=== PATIENT | male | born 1965 | race Caucasian/White ===

== ENCOUNTER 2022-07-31 12:41 | Outpatient (CLI) | payer OTHER, SELFPAY ==
--- NOTE | 2022-07-31 13:14 | XR_ITS ---
WS: [id number] Lumbar spine, 3 views, 07/31/2022 Clinical Data: ARTHRITIS Comparison: None. Findings: No compression fractures or subluxation is seen. No disc space narrowing is seen. There is minimal an terior osteoarthritic spurring L3-L5. There is a minimal levoscoliosis. There are surgical clips in t he left upper quadrant. There is a large amount of fecal material in the colon. The transverse proces ses and SI joints are normal. XR/XR lumbar spine 2-3V* [id number] Impression: Minimal levoscoliosis with osteoarthritis L3-L5.
--- NOTE | 2022-07-31 13:14 | XR_ITS ---
WS: [id number] Thoracic spine, AP and lateral views, 07/31/2022 Clinical Data: ARTHRITIS Comparison: None. Findings: No compression fractures are seen. The disc heights are normal. There is a dextroscoliosis. Moderate osteoarthritic spurring of all the vertebral bodies is seen. The re are surgical sutures in the left upper quadrant. XR/XR thoracic spine 2V 14096 Impression: Dextroscoliosis and moderate osteoarthritis of the thoracic spine.
[2022-07-31 14:00] LABS: Basophils # 0.1 10^3/uL (0.0-0.1); Basophils % 0.7 %; Eosinophils # 0.3 10^3/uL (0.0-0.8); Eosinophils % 1.8 %; Hematocrit 37.4 % (42.0-52.0); Hemoglobin 12.3 g/dL (11.7-16.6); Lymphocytes # 2.7 10^3/uL (0.8-4.8); Mean Corpuscular HGB Conc 32.9 g/dL (30.0-36.0); Mean Corpuscular Hemoglobin 29.1 pg (28.0-34.0); Mean Corpuscular Volume 88.4 fl (80-94); Mean Platelet Volume 8.7 fL (7.4-10.4); Monocytes # 1.8 10^3/uL (0.2-0.9); Monocytes % 10.4 %; Neutrophils # 11.92 10^3/uL (1.8-7.7); Neutrophils % 70.7 %; Nucleated Red Blood Cells % 0 %; Platelet Count 789 10^3/cmm (130-400); Red Blood Count 4.23 10^6/uL (4.1-5.3); Red Cell Distribution Width 12.9 % (12.1-15.1); White Blood Count 16.9 10^3/uL (4.0-10.0)
[2022-07-31 14:36] LABS: Amylase 26 U/L (28-100); Lipase 15 U/L (13-60)
== END 2022-07-31 12:42 | disposition home or self-care (01) ==
LOC: LAB 12:50
PROVIDERS: Visit Provider Chiropractor
DX: K86.1 Other chronic pancreatitis (principal); M47.816 Spondylosis without myelopathy or radiculopathy, lumbar region; M47.814 Spondylosis without myelopathy or radiculopathy, thoracic region; M41.9 Scoliosis, unspecified
CPT/HCPCS: 36415; 72070; 72100; 82150; 83690; 85025

== ENCOUNTER → 2022-09-16 11:46 | Outpatient (BNVA) | payer OTHER, SELFPAY | PROVIDERS: Visit Provider Internal Medicine Rheumatology | DX: M19.90 Unspecified osteoarthritis, unspecified site (principal) | CPT/HCPCS: 73130; 73630 ==

== ENCOUNTER 2022-10-07 08:25 | Oncology outpatient (recurring) (ONCR) | payer OTHER, SELFPAY ==
[2022-09-23] MEDS: sodium chloride 0.9% 250 ML 75 ML IV (09:03)
[2022-09-23] MEDS: methylPREDNISolone sod succ 125 mg/2 mL INJ 80 MG IVP (09:03)
[2022-09-23] MEDS: acetaminophen 325 mg Tablet 650 MG PO (09:04)
[2022-09-23 09:21] LABS: Erythrocyte Sedimentation Rate 15 mm/hr (0-10)
[2022-09-23] MEDS: rituximab-pvvr 1,000 MG in sodium chloride 0.9% 500 ML 200 MG IV (09:27)
[2022-09-23 09:31] LABS: Alanine Aminotransferase 10 U/L (0-41); Albumin Level 3.8 g/dL (3.5-5.2); Alkaline Phosphatase 75 U/L (40-130); Aspartate Amino Transferase 17 U/L (0-40); C Reactive Protein 44.4 mg/L (0.0-4.9); Globulin 2.7 g/dL (1.3-4.6); Glomerular Filtration Rate 116.7 mL/min (90-130); Total Bilirubin 0.3 mg/dL (0.15-1.2); Total Protein 6.5 g/dL (6.6-8.7)
[2022-09-23 10:01] VITALS: BP 97/60; PULSE 68; RESP 18; TEMP 36; O2SAT 93
[2022-09-23 10:34] VITALS: BP 116/63; PULSE 67; RESP 18; TEMP 36.3; O2SAT 91
[2022-09-23 11:07] VITALS: BP 123/75; PULSE 64; RESP 18; TEMP 36; O2SAT 96
[2022-09-23 11:37] VITALS: BP 133/54; PULSE 66; RESP 18; TEMP 36; O2SAT 96
[2022-09-23 12:55] VITALS: BP 133/73; PULSE 87; RESP 18; TEMP 36.1; O2SAT 95
[2022-10-07 08:10] VITALS: BP 104/67; PULSE 68; TEMP 37.1; O2SAT 95
[2022-10-07] MEDS: acetaminophen 325 mg Tablet 650 MG PO (08:44)
[2022-10-07] MEDS: sodium chloride 0.9% 250 ML 100 ML IV (08:45)
[2022-10-07] MEDS: methylPREDNISolone sod succ 125 mg SDV 80 MG IVP (08:52)
[2022-10-07] MEDS: rituximab-pvvr 1,000 MG in sodium chloride 0.9% 500 ML 100 MG IV (09:24)
[2022-10-07 09:30] VITALS: BP 104/67; PULSE 68; TEMP 37.1; O2SAT 95
[2022-10-07 10:00] VITALS: BP 106/70; PULSE 62; TEMP 36.8; O2SAT 95
[2022-10-07 10:30] VITALS: BP 113/70; PULSE 61; TEMP 36.7; O2SAT 95
[2022-10-07 11:00] VITALS: BP 116/69; PULSE 64; TEMP 36.7; O2SAT 98
[2022-10-07 12:57] VITALS: BP 155/76; PULSE 76
== END 2022-10-07 23:59 | disposition home or self-care (01) ==
PROVIDERS: Visit Provider Internal Medicine Rheumatology
DX: Z51.12 Encounter for antineoplastic immunotherapy (principal)
CPT/HCPCS: 80076; 82565; 85651; 86140; 96361; 96375; 96413; 96415; J2930; J7040; J7050; Q5119

== ENCOUNTER 2022-10-17 20:00 | Outpatient (CLI) | payer OTHER, SELFPAY | END 2022-10-17 20:01 | disposition home or self-care (01) | LOC: SLEEP 10-18 05:20 | PROVIDERS: Visit Provider Anesthesiology Pain Medicine | DX: G47.33 Obstructive sleep apnea (adult) (pediatric) (principal) | CPT/HCPCS: 95810 ==

== ENCOUNTER → 2022-11-19 14:01 | Outpatient (BNVA) | payer OTHER, SELFPAY | PROVIDERS: PCP Nurse Practitioner Family; Visit Provider Internal Medicine Rheumatology | DX: M19.90 Unspecified osteoarthritis, unspecified site (principal); Z79.899 Other long term (current) drug therapy; D89.89 Other specified disorders involving the immune mechanism, not elsewhere classified; M79.7 Fibromyalgia; G47.00 Insomnia, unspecified; Z90.81 Acquired absence of spleen; E11.9 Type 2 diabetes mellitus without complications | CPT/HCPCS: 36415; 85025; 85651; 86038; 86140; 86200; 86431; 99214 ==

== ENCOUNTER 2023-04-16 07:57 | Oncology outpatient (recurring) (ONCR) | payer OTHER, SELFPAY ==
[2023-04-16] MEDS: acetaminophen 325 mg Tablet 650 MG PO (09:44)
[2023-04-16] MEDS: sodium chloride 0.9% 250 ML 50 ML IV (09:45)
[2023-04-16] MEDS: methylPREDNISolone sod succ 125 mg SDV 80 MG IVP (09:48)
[2023-04-16] MEDS: diphenhydrAMINE 50 mg/mL SDV 1mL 25 MG IVP (09:55)
[2023-04-16 10:31] VITALS: BP 118/75; PULSE 69; RESP 16; TEMP 36.2; O2SAT 97
[2023-04-16] MEDS: rituximab-pvvr 1,000 MG in sodium chloride 0.9% 500 ML 70 MG IV (10:31)
[2023-04-16 11:01] VITALS: BP 111/71; PULSE 69; RESP 17; TEMP 37; O2SAT 95
[2023-04-16 12:01] VITALS: BP 91/63; PULSE 76; RESP 16; TEMP 36.4; O2SAT 97
[2023-04-16 13:48] VITALS: BP 124/77; PULSE 76; RESP 16; TEMP 36.2; O2SAT 97
[2023-04-16 14:10] VITALS: BP 124/77; PULSE 76; RESP 16; TEMP 36.2; O2SAT 97
== END 2023-04-23 23:59 | disposition home or self-care (01) ==
PROVIDERS: PCP Nurse Practitioner Family; Visit Provider Internal Medicine Rheumatology
DX: M19.90 Unspecified osteoarthritis, unspecified site (principal)
CPT/HCPCS: 96375; 96413; 96415; J1200; J2930; J7040; J7050; Q5119

== ENCOUNTER 2023-05-05 08:26 | Oncology outpatient (recurring) (ONCR) | payer OTHER, SELFPAY ==
[2023-05-05 09:00] VITALS: BP 122/77; PULSE 78; RESP 16; TEMP 36.7; O2SAT 97
[2023-05-05] MEDS: sodium chloride 0.9% 250 ML 75 ML IV (09:53)
[2023-05-05] MEDS: acetaminophen 325 mg Tablet 650 MG PO (09:54)
[2023-05-05] MEDS: diphenhydrAMINE 50 mg/mL SDV 1mL 25 MG IVP (09:55)
[2023-05-05] MEDS: methylPREDNISolone sod succ 125 mg/2 mL INJ 80 MG IVP (09:55)
[2023-05-05] MEDS: rituximab-pvvr 1,000 MG in sodium chloride 0.9% 500 ML 200 MG IV (10:35)
[2023-05-05 10:40] VITALS: BP 120/68; PULSE 69; RESP 18; TEMP 36.7; O2SAT 98
[2023-05-05 12:10] VITALS: BP 111/67; PULSE 69; RESP 18; TEMP 36.3; O2SAT 97
[2023-05-05 14:00] VITALS: BP 156/75; PULSE 85; RESP 18; TEMP 36.3; O2SAT 97
== END 2023-05-22 23:59 | disposition home or self-care (01) ==
PROVIDERS: PCP Nurse Practitioner Family; Visit Provider Internal Medicine Rheumatology
DX: M19.90 Unspecified osteoarthritis, unspecified site (principal)
CPT/HCPCS: 96375; 96413; 96415; J1200; J2930; J7040; J7050; Q5119

== ENCOUNTER → 2023-05-06 10:24 | Outpatient (BNVA) | payer OTHER, SELFPAY | PROVIDERS: PCP Nurse Practitioner Family; Visit Provider Internal Medicine Rheumatology | DX: D89.89 Other specified disorders involving the immune mechanism, not elsewhere classified (principal); M79.7 Fibromyalgia; M19.90 Unspecified osteoarthritis, unspecified site; G47.00 Insomnia, unspecified; Z90.81 Acquired absence of spleen; E11.9 Type 2 diabetes mellitus without complications | CPT/HCPCS: 99214 ==

== ENCOUNTER → 2023-08-21 10:28 | Outpatient (BNVA) | payer OTHER, SELFPAY | PROVIDERS: PCP Nurse Practitioner Family; Referring Provider Nurse Practitioner Family; Visit Provider Anesthesiology Pain Medicine | DX: M54.12 Radiculopathy, cervical region | CPT/HCPCS: 99205 ==

== ENCOUNTER → 2023-09-03 11:42 | Outpatient (BNVA) | payer OTHER, SELFPAY | PROVIDERS: PCP Nurse Practitioner Family; Visit Provider Internal Medicine Rheumatology | DX: M06.041 Rheumatoid arthritis without rheumatoid factor, right hand (principal); M06.042 Rheumatoid arthritis without rheumatoid factor, left hand; E11.9 Type 2 diabetes mellitus without complications; D89.89 Other specified disorders involving the immune mechanism, not elsewhere classified; M79.7 Fibromyalgia; Z90.81 Acquired absence of spleen; Z79.899 Other long term (current) drug therapy; Z71.85 Encounter for immunization safety counseling | CPT/HCPCS: 36415; 80076; 82565; 83520; 85025; 85651; 86140; 86160; 86162; 86235; 86255; 86376; 86480; 86704; 86800; 86803; 87340; 99215 ==

== ENCOUNTER 2023-10-22 08:00 | Oncology outpatient (recurring) (ONCR) | payer OTHER, SELFPAY ==
[2023-10-21 08:16] VITALS: BP 103/68; PULSE 69; RESP 16; TEMP 36.9; O2SAT 93
--- NOTE | 2023-10-21 10:55 | PC.NURSE ---
patient rescheduled for 10/22/23 due to drug not arriving on shipment, gas card given to patient.
[2023-10-22 08:00] VITALS: BP 119/72; PULSE 73; RESP 17; TEMP 36.7; O2SAT 95
[2023-10-22] MEDS: acetaminophen 325 mg Tablet 650 MG PO (08:11)
[2023-10-22] MEDS: sodium chloride 0.9% 250 ML 75 ML IV (08:12)
[2023-10-22] MEDS: diphenhydrAMINE 50 mg/mL SDV 1mL 25 MG IVP (08:16)
[2023-10-22] MEDS: methylPREDNISolone sod succ 125 mg/2 mL INJ 80 MG IVP (08:22)
[2023-10-22 09:05] VITALS: BP 119/79; PULSE 60; RESP 16; TEMP 36.8; O2SAT 98
[2023-10-22] MEDS: rituximab-pvvr 1,000 MG in sodium chloride 0.9% 500 ML 70 MG IV (09:05)
[2023-10-22 09:35] VITALS: BP 119/79; PULSE 69; RESP 16; TEMP 36.8; O2SAT 96
[2023-10-22 10:05] VITALS: BP 121/73; PULSE 66; RESP 16; TEMP 36.8; O2SAT 99
[2023-10-22 10:35] VITALS: BP 118/64; PULSE 64; RESP 16; TEMP 36.8; O2SAT 96
[2023-10-22 12:13] VITALS: BP 154/80; PULSE 69; RESP 16; TEMP 36.8; O2SAT 97
== END 2023-10-22 23:59 | disposition home or self-care (01) ==
PROVIDERS: PCP Nurse Practitioner Family; Visit Provider Internal Medicine Rheumatology
DX: Z53.9 Procedure and treatment not carried out, unspecified reason (principal); M19.90 Unspecified osteoarthritis, unspecified site; Z79.899 Other long term (current) drug therapy
CPT/HCPCS: 96375; 96413; 96415; J1200; J2919; J7040; J7050; Q5119

== ENCOUNTER 2023-11-04 08:12 | Oncology outpatient (recurring) (ONCR) | payer OTHER, SELFPAY ==
[2023-11-04 08:17] VITALS: BP 114/72; PULSE 82; RESP 18; TEMP 36.8; O2SAT 96
[2023-11-04] MEDS: acetaminophen 325 mg Tablet 650 MG PO (08:37)
[2023-11-04] MEDS: diphenhydrAMINE 50 mg/mL SDV 1mL 25 MG IVP (08:39)
[2023-11-04] MEDS: sodium chloride 0.9% 250 ML 75 ML IV (08:41)
[2023-11-04] MEDS: methylPREDNISolone sod succ 125 mg/2 mL INJ 80 MG IVP (08:45)
[2023-11-04] MEDS: rituximab-pvvr 1,000 MG in sodium chloride 0.9% 500 ML 65 MG IV (09:05)
[2023-11-04 09:10] VITALS: BP 97/61; PULSE 63; RESP 18; TEMP 36.4; O2SAT 97
[2023-11-04 09:40] VITALS: BP 89/55; PULSE 67; RESP 18; TEMP 36.1; O2SAT 96
[2023-11-04 10:10] VITALS: BP 103/66; PULSE 59; RESP 16; TEMP 36; O2SAT 93
[2023-11-04 10:40] VITALS: BP 125/57; PULSE 62; RESP 16; TEMP 36.2; O2SAT 96
[2023-11-04 12:48] VITALS: BP 118/77; PULSE 63; RESP 16; TEMP 35.6; O2SAT 96
== END 2023-11-22 23:55 | disposition home or self-care (01) ==
PROVIDERS: PCP Nurse Practitioner Family; Visit Provider Internal Medicine Rheumatology
DX: M19.90 Unspecified osteoarthritis, unspecified site (principal); Z53.9 Procedure and treatment not carried out, unspecified reason; D89.89 Other specified disorders involving the immune mechanism, not elsewhere classified; Z79.899 Other long term (current) drug therapy
CPT/HCPCS: 96375; 96413; 96415; J1200; J2919; J7040; J7050; Q5119

== ENCOUNTER → 2024-04-07 08:56 | Outpatient (BNVA) | payer OTHER, SELFPAY | PROVIDERS: PCP Nurse Practitioner Family; Visit Provider Internal Medicine Rheumatology | DX: M06.041 Rheumatoid arthritis without rheumatoid factor, right hand (principal); M06.042 Rheumatoid arthritis without rheumatoid factor, left hand; D89.89 Other specified disorders involving the immune mechanism, not elsewhere classified; Z90.81 Acquired absence of spleen; E11.9 Type 2 diabetes mellitus without complications; M79.7 Fibromyalgia | CPT/HCPCS: 36415; 80076; 82565; 85025; 85651; 86140; 99214 ==

== ENCOUNTER 2024-04-14 07:57 | Oncology outpatient (recurring) (ONCR) | payer OTHER, SELFPAY ==
[2024-04-14 08:09] VITALS: BP 117/71; PULSE 62; RESP 15; TEMP 37; O2SAT 94
[2024-04-14 09:34] LABS: Basophils # 0.1 10^3/uL (0.0-0.1); Basophils % 1.2 %; Eosinophils # 0.4 10^3/uL (0.0-0.8); Eosinophils % 4.6 %; Hematocrit 37.6 % (37-53); Lymphocytes # 2.9 10^3/uL (0.8-4.8); Lymphocytes % 31.5 %; Mean Corpuscular Hemoglobin 28.9 pg (27-33); Mean Corpuscular Volume 84.9 fl (82-101); Mean Platelet Volume 9.7 fL (7.4-10.4); Monocytes # 0.9 10^3/uL (0.2-0.9); Monocytes % 9.4 %; Neutrophils # 4.93 10^3/uL (1.8-7.7); Neutrophils % 53.1 %; Nucleated Red Blood Cells % 0 %; Platelet Count 463 10^3/cmm (157-399); Red Blood Count 4.43 10^6/uL (3.85-5.65); Red Cell Distribution Width 14.4 % (12.1-15.1); White Blood Count 9.29 10^3/uL (3.29-11.43)
[2024-04-14] MEDS: methylPREDNISolone sod succ 125 mg/2 mL INJ 80 MG IVP (09:40)
[2024-04-14] MEDS: diphenhydrAMINE 50 mg/mL SDV 1mL 25 MG IVP (09:41)
[2024-04-14] MEDS: acetaminophen 325 mg Tablet 650 MG PO (09:50)
[2024-04-14 09:54] LABS: Alanine Aminotransferase 13 U/L (0-41); Albumin Level 4.2 g/dL (3.5-5.2); Alkaline Phosphatase 95 U/L (40-130); Aspartate Amino Transferase 20 U/L (0-40); Globulin 2.5 g/dL (1.3-4.6); Glomerular Filtration Rate 138.4 mL/min (90-130); Total Bilirubin 0.2 mg/dL (0.15-1.2); Total Protein 6.7 g/dL (6.6-8.7)
[2024-04-14 10:20] VITALS: BP 147/83; PULSE 68; RESP 16; TEMP 36.4; O2SAT 96
[2024-04-14] MEDS: rituximab-pvvr 1,000 MG in sodium chloride 0.9% 500 ML 200 MG IV (10:20)
[2024-04-14 10:50] VITALS: BP 132/77; PULSE 64; RESP 16; TEMP 36.7; O2SAT 96
[2024-04-14 11:20] VITALS: BP 127/81; PULSE 68; RESP 16; TEMP 36.7; O2SAT 96
[2024-04-14 12:29] LABS: Erythrocyte Sedimentation Rate 3 mm/hr (0-10)
[2024-04-14 13:55] VITALS: BP 127/78; PULSE 67; RESP 18; TEMP 36.8; O2SAT 98
== END 2024-04-23 23:59 | disposition home or self-care (01) ==
PROVIDERS: PCP Nurse Practitioner Family; Visit Provider Internal Medicine Rheumatology
DX: M06.042 Rheumatoid arthritis without rheumatoid factor, left hand (principal); M06.041 Rheumatoid arthritis without rheumatoid factor, right hand; Z79.899 Other long term (current) drug therapy
CPT/HCPCS: 80076; 82565; 85025; 85651; 96375; 96413; 96415; J1200; J2919; J7040; Q5119

== ENCOUNTER 2024-06-14 07:52 | Oncology outpatient (recurring) (ONCR) | payer OTHER, SELFPAY ==
[2024-06-14 08:39] VITALS: BP 121/71; PULSE 69; RESP 16; TEMP 36.6; O2SAT 98
[2024-06-14] MEDS: sodium chloride 0.9% 250 ML 75 ML IV (09:24)
[2024-06-14] MEDS: diphenhydrAMINE 50 mg/mL SDV 1mL 25 MG IVP (09:24)
[2024-06-14] MEDS: methylPREDNISolone sod succ 125 mg/2 mL INJ 80 MG IVP (09:29)
[2024-06-14] MEDS: acetaminophen 325 mg Tablet 650 MG PO (09:32)
[2024-06-14] MEDS: rituximab 1,000 MG in sodium chloride 0.9% 500 ML 70 MG IV (10:04)
[2024-06-14 10:43] VITALS: BP 115/71; PULSE 58; RESP 18; TEMP 36.6; O2SAT 95
[2024-06-14 11:11] VITALS: BP 126/77; PULSE 69; RESP 16; TEMP 36.7; O2SAT 100
[2024-06-14 11:42] VITALS: BP 123/74; PULSE 61; RESP 16; TEMP 36.8; O2SAT 98
[2024-06-14 16:43] VITALS: BP 126/71; PULSE 74; RESP 16; TEMP 36.3; O2SAT 97
== END 2024-06-14 23:59 | disposition home or self-care (01) ==
LOC: ONCMED 07:52
PROVIDERS: PCP Nurse Practitioner Family; Visit Provider Internal Medicine Rheumatology
DX: M19.90 Unspecified osteoarthritis, unspecified site (principal); Z79.899 Other long term (current) drug therapy
CPT/HCPCS: 96375; 96413; 96415; J1200; J2919; J7040; J7050; J9312; J9999

== ENCOUNTER → 2024-09-29 09:00 | Outpatient (BNVA) | payer OTHER, SELFPAY | PROVIDERS: PCP Nurse Practitioner Family; Visit Provider Internal Medicine Rheumatology | DX: Z79.899 Other long term (current) drug therapy (principal); M79.7 Fibromyalgia; D89.84 IgG4-related disease; Z90.81 Acquired absence of spleen; E11.9 Type 2 diabetes mellitus without complications; M06.041 Rheumatoid arthritis without rheumatoid factor, right hand; M06.042 Rheumatoid arthritis without rheumatoid factor, left hand | CPT/HCPCS: 36415; 80076; 82306; 82565; 85025; 85651; 86140; 99214 ==

== ENCOUNTER 2024-11-17 08:35 | Oncology outpatient (recurring) (ONCR) | payer OTHER, SELFPAY ==
[2024-11-04 09:06] LABS: Hematocrit 38.7 % (37-53); Hemoglobin 13.20 g/dL (11.27-16.99); Mean Corpuscular HGB Conc 34.1 g/dL (30-55); Mean Corpuscular Hemoglobin 28.4 pg (27-33); Mean Corpuscular Volume 83.2 fl (82-101); Nucleated Red Blood Cells % 0 %; Platelet Count 442 10^3/cmm (157-399); Red Blood Count 4.65 10^6/uL (3.85-5.65); White Blood Count 13.93 10^3/uL (3.29-11.43)
[2024-11-04] MEDS: methylPREDNISolone sod succ 40 mg/mL INJ 80 MG IVP (09:21)
[2024-11-04] MEDS: diphenhydrAMINE 50 mg/mL SDV 1mL 25 MG IVP (09:24)
[2024-11-04 09:26] LABS: Alanine Aminotransferase 13 U/L (0-41); Albumin Level 4.1 g/dL (3.5-5.2); Alkaline Phosphatase 90 U/L (40-130); Aspartate Amino Transferase 22 U/L (0-40); Globulin 3.1 g/dL (1.3-4.6); Total Protein 7.2 g/dL (6.6-8.7)
[2024-11-04 10:00] VITALS: BP 137/82; PULSE 65; TEMP 36.6; O2SAT 98
[2024-11-04] MEDS: rituximab-pvvr 1,000 MG in sodium chloride 0.9% 500 ML 65 MG IV (10:01)
[2024-11-04 10:30] VITALS: BP 126/74; PULSE 65; RESP 16; TEMP 36.6; O2SAT 96
[2024-11-04 11:00] VITALS: BP 121/74; PULSE 62; RESP 16; TEMP 36.6; O2SAT 98
[2024-11-04 11:30] VITALS: BP 112/67; PULSE 66; RESP 16; TEMP 37; O2SAT 95
[2024-11-04 13:25] VITALS: BP 144/68; PULSE 71; RESP 16; TEMP 36.6; O2SAT 98
[2024-11-17] MEDS: diphenhydrAMINE 50 mg/mL SDV 1mL 25 MG IVP (09:04)
[2024-11-17] MEDS: methylPREDNISolone sod succ 125 mg/2 mL INJ 80 MG IVP (09:08)
[2024-11-17] MEDS: rituximab-pvvr 1,000 MG in sodium chloride 0.9% 500 ML 75 MG IV (09:49)
[2024-11-17 10:22] VITALS: BP 134/76; PULSE 64; RESP 18; TEMP 36.2; O2SAT 94
[2024-11-17 10:55] VITALS: BP 113/73; PULSE 63; RESP 18; TEMP 35.5; O2SAT 96
[2024-11-17 11:25] VITALS: BP 124/78; PULSE 62; RESP 18; TEMP 36.4; O2SAT 93
[2024-11-17 12:50] VITALS: BP 135/81; PULSE 69; RESP 16; TEMP 36.2; O2SAT 98
== END 2024-11-17 23:59 | disposition home or self-care (01) ==
PROVIDERS: PCP Nurse Practitioner Family; Visit Provider Internal Medicine Rheumatology
DX: M06.041 Rheumatoid arthritis without rheumatoid factor, right hand; M06.042 Rheumatoid arthritis without rheumatoid factor, left hand; Z79.899 Other long term (current) drug therapy; Z53.9 Procedure and treatment not carried out, unspecified reason
CPT/HCPCS: 80076; 82565; 85025; 85651; 86140; 96365; 96366; 96375; 96413; 96415; J1200; J2919; J7040; J7050; J9999; Q5119